=== PATIENT | female | born 1950 | race Caucasian/White ===

== ENCOUNTER 2022-05-29 15:19 | Emergency (ER) | payer MEDICARE | END 2022-05-29 17:08 | disposition home or self-care (01) | LOC: JP.ED 15:19 | DX: R53.1 Weakness (principal); E78.00 Pure hypercholesterolemia, unspecified; I10 Essential (primary) hypertension; E11.9 Type 2 diabetes mellitus without complications; Z91.041 Radiographic dye allergy status; Z79.82 Long term (current) use of aspirin; Z79.899 Other long term (current) drug therapy; Z79.84 Long term (current) use of oral hypoglycemic drugs | CPT/HCPCS: 70450; 99283; 99284 ==

== ENCOUNTER 2023-07-13 09:44 | Emergency (ER) | payer MEDICARE | END 2023-07-13 14:11 | disposition home or self-care (01) | LOC: JP.ED 09:44 | DX: S12.112A Nondisplaced Type II dens fracture, initial encounter for closed fracture (principal); G89.29 Other chronic pain; E78.00 Pure hypercholesterolemia, unspecified; I10 Essential (primary) hypertension; E11.9 Type 2 diabetes mellitus without complications; Z91.041 Radiographic dye allergy status; Z79.82 Long term (current) use of aspirin; Z79.899 Other long term (current) drug therapy; Z79.84 Long term (current) use of oral hypoglycemic drugs; Z86.19 Personal history of other infectious and parasitic diseases; X58.XXXA Exposure to other specified factors, initial encounter | CPT/HCPCS: 99283 ==

== ENCOUNTER 2025-01-16 12:25 | Emergency (ER) | payer MEDICARE ==
[2025-01-16] MEDS ORDERED: Sodium Chloride 0.9% 10 ML Syringe FLUSH PRN (12:34)
[2025-01-16 12:48] LABS: BASOPHILS ABSOLUTE AUTO 0.04 K/uL (0.00-0.10); BASOPHILS PERCENT AUTO 0.4 % (0.1-1.3); EOSINOPHILS ABSOLUTE AUTO 0.13 K/uL (0.00-0.40); EOSINOPHILS PERCENT AUTO 1.5 % (0.0-5.4); IMMATURE GRAN PERCENT AUTO 0.2 % (0.0-0.7); LYMPHOCYTES ABSOLUTE AUTO 3.16 K/uL (0.8-3.3); LYMPHOCYTES PERCENT AUTO 35.3 % (11.4-47.7); MONOCYTES ABSOLUTE AUTO 0.72 K/uL (0.20-0.90); MONOCYTES PERCENT AUTO 8.0 % (3.3-12.6); NEUTROPHILS ABSOLUTE AUTO 4.88 K/uL (1.0-7.6); NEUTROPHILS PERCENT AUTO 54.6 % (40.0-78.1); PLATELET COUNT,PLT 273 K/uL (130-375); RED BLOOD CELL COUNT 4.40 M/uL (3.77-5.24); WHITE BLOOD CELL COUNT,WBC 9.0 K/uL (3.2-11.0)
[2025-01-16] MEDS ORDERED: Naloxone 0.4 MG/ML SDV IVPUSH PRN (12:48)
[2025-01-16] MEDS: Ondansetron 4 MG/2 ML SDV IVPUSH ONE (12:51)
[2025-01-16 12:52] LABS: IMMATURE GRAN ABSOLUTE AUTO 0.02 K/uL (0.00-0.23)
[2025-01-16 13:06] LABS: INR 1.0; PTT,PARTIAL THROMBOPLSTIN TIME 23.6 sec (21.8-27.3)
[2025-01-16 13:20] LABS: A/G RATIO 1.4 (1.2-2.2); ALANINE AMINOTRANSFERASE,ALT 32 U/L (12-78); ASPARTATE AMNIOTRANSFERASE,AST 29 U/L (15-37); BILIRUBIN TOTAL 0.6 mg/dL (0.2-1.0); BLOOD UREA NITROGEN,BUN 20 mg/dL (7-18); CARBON DIOXIDE,CO2 25 mmol/L (21-32); CHLORIDE,CL 101 mmol/L (100-108); CREATININE 0.8 mg/dL (0.6-1.0); EST CRCL DRUG DOSING (CG) 60.00 mL/min; ESTIMATED GFR 77 mL/min (>60); GLUCOSE RANDOM 106 mg/dL (74-106); POTASSIUM,K 4.4 mmol/L (3.6-5.2); PROTEIN TOTAL,TP 7.4 g/dL (6.4-8.2); SODIUM,NA 136 mmol/L (140-148); TROPONIN I HIGH SENSITIVITY 5.4 pg/mL (<=60.3)
[2025-01-16] MEDS: Metoprolol Tartrate 5 MG/5 ML SDV IVPUSH ONE (13:55)
[2025-01-16] MEDS: Ketorolac 30 MG/ML SDV IVPUSH ONE (14:02)
[2025-01-16] MEDS: Prochlorperazine 10 MG/2 ML SDV IVPUSH ONE (14:51)
== END 2025-01-16 17:33 | disposition home or self-care (01) ==
LOC: JP.ED 12:25
DX: G44.009 Cluster headache syndrome, unspecified, not intractable (principal); I10 Essential (primary) hypertension; M19.90 Unspecified osteoarthritis, unspecified site; E78.00 Pure hypercholesterolemia, unspecified; E11.9 Type 2 diabetes mellitus without complications; Z91.041 Radiographic dye allergy status; Z79.82 Long term (current) use of aspirin; Z79.899 Other long term (current) drug therapy; Z79.84 Long term (current) use of oral hypoglycemic drugs
CPT/HCPCS: 36415; 70450; 74176; 80053; 84484; 85025; 85610; 85651; 85730; 93005; 96374; 96375; 99285; J0780; J1171; J1308; J2405; J1885

== ENCOUNTER 2025-01-18 10:29 | Emergency (ER) | payer MEDICARE ==
[2025-01-18 11:40] LABS: BASE EXCESS ARTERIAL 1.6 mm/L; BASOPHILS PERCENT AUTO 0.2 % (0.1-1.3); BICARBONATE,ARTERIAL 26.4 mmol/L (22.0-26.0); EOSINOPHILS PERCENT AUTO 0.1 % (0.0-5.4); IMMATURE GRAN ABSOLUTE AUTO 0.04 K/uL (0.00-0.23); IMMATURE GRAN PERCENT AUTO 0.4 % (0.0-0.7); LYMPHOCYTES ABSOLUTE AUTO 1.99 K/uL (0.8-3.3); LYMPHOCYTES PERCENT AUTO 21.7 % (11.4-47.7); MONOCYTES ABSOLUTE AUTO 0.64 K/uL (0.20-0.90); MONOCYTES PERCENT AUTO 7.0 % (3.3-12.6); NEUTROPHILS ABSOLUTE AUTO 6.47 K/uL (1.0-7.6); NEUTROPHILS PERCENT AUTO 70.6 % (40.0-78.1); O2 SATURATION ARTERIAL 96.2 % (95.0-98.0); OXYHEMOGLOBIN 93.7 %; PCO2 ARTERIAL 44.8 mmHg (35.0-42.0); PLATELET COUNT,PLT 252 K/uL (130-375); PO2 ARTERIAL 81.8 mmHg (75.0-100.0); RED BLOOD CELL COUNT 4.03 M/uL (3.77-5.24); TOTAL HEMOGLOBIN 12.8 g/dL (12.0-16.0); WHITE BLOOD CELL COUNT,WBC 9.2 K/uL (3.2-11.0)
[2025-01-18 11:41] LABS: BASOPHILS ABSOLUTE AUTO 0.02 K/uL (0.00-0.10); EOSINOPHILS ABSOLUTE AUTO 0.01 K/uL (0.00-0.40)
[2025-01-18 12:10] LABS: A/G RATIO 1.3 (1.2-2.2); ALANINE AMINOTRANSFERASE,ALT 35 U/L (12-78); ASPARTATE AMNIOTRANSFERASE,AST 21 U/L (15-37); BILIRUBIN TOTAL 0.5 mg/dL (0.2-1.0); BLOOD UREA NITROGEN,BUN 18 mg/dL (7-18); CARBON DIOXIDE,CO2 30 mmol/L (21-32); CHLORIDE,CL 98 mmol/L (100-108); CREATININE 0.8 mg/dL (0.6-1.0); EST CRCL DRUG DOSING (CG) 60.00 mL/min; ESTIMATED GFR 77 mL/min (>60); GLUCOSE RANDOM 116 mg/dL (74-106); POTASSIUM,K 3.9 mmol/L (3.6-5.2); PROTEIN TOTAL,TP 7.0 g/dL (6.4-8.2); SODIUM,NA 135 mmol/L (140-148); TSH ULTRASENSITIVE 1.899 uIU/mL (0.358-3.740)
[2025-01-18] MEDS: methylPREDNISolone Sodium Succinate 40 MG/1 ML SDV IVPUSH ONE (12:56)
== END 2025-01-18 13:07 | disposition home or self-care (01) ==
LOC: JP.ED 10:29
DX: G44.1 Vascular headache, not elsewhere classified (principal); I10 Essential (primary) hypertension; E78.00 Pure hypercholesterolemia, unspecified; E11.9 Type 2 diabetes mellitus without complications; Z86.73 Personal history of transient ischemic attack (TIA), and cerebral infarction without residual deficits; Z91.041 Radiographic dye allergy status; Z79.82 Long term (current) use of aspirin; Z79.84 Long term (current) use of oral hypoglycemic drugs; Z79.899 Other long term (current) drug therapy
CPT/HCPCS: 36415; 36600; 80053; 82803; 84443; 85025; 85379; 96374; 96375; 99284; J1790; J1171; J2919